=== PATIENT | female | born 1990 | race Caucasian/White ===

== ENCOUNTER 2021-06-04 11:11 | Emergency (ER) | payer OTHER ==
[2021-06-04] MEDS ORDERED: Ketorolac 10 MG Tab PO ONE (12:00)
--- NOTE | 2021-06-04 12:02 | EDM.PDOC ---
ED HPI GENERAL MEDICAL PROBLEM - General Chief Complaint: Upper Extremity Injury/Pain Stated Complaint: Hand Crush Injury Time Seen by Provider: 06/04/21 11:15 Source of Information: Reports: Patient History Limitations: Reports: No Limitations - History of Present Illness INITIAL COMMENTS - FREE TEXT/NARRATIVE: Patient comes here from [facility] with injury to right hand. Got back of hand caught between two pieces of metal. Has pain on back of hand laterally, but no wrist or finger pain. No numbness/weakness/deformity. - Related Data Allergies Allergy/AdvReac Type Severity Reaction Status Date / Time amoxicillin Allergy Cannot Verified 06/04/21 12:01 Remember Home Meds: Home Meds Multivitamin 1 each PO 06/04/21 [History] Review of Systems - Review of Systems Review Of Systems: See Below Constitutional: Reports: No Symptoms Eyes: Reports: No Symptoms Ears: Reports: No Symptoms Nose: Reports: No Symptoms Mouth/Throat: Reports: No Symptoms Cardiovascular: Reports: No Symptoms GI/Abdominal: Reports: No Symptoms Genitourinary: Reports: No Symptoms Musculoskeletal: Reports: Hand Pain, Other (right hand pain). Denies: Joint Pain, Joint Swelling Skin: Reports: Bruising. Denies: Mottled, Pallor, Erythema, Wound, Lumps Neurological: Reports: No Symptoms Psychiatric: Reports: No Symptoms ED EXAM, GENERAL - Physical Exam Exam: See Below Exam Limited By: No Limitations General Appearance: Alert, WD/WN, No Apparent Distress Eye Exam: Bilateral Eye: EOMI, PERRL Ears: Hearing Grossly Normal Throat/Mouth: Normal Voice Head: Atraumatic, Normocephalic Peripheral Pulses: 2+: Radial (R) Extremities: Other (Pain with palpation over right 4th and 5th metacarpal area. Small amount bruising over dorsal apect of hand. Fingers/wrist nontender and full ROM. ). No: Joint Swelling, Increased Warmth, Mottled, Pallor, Redness Neurological: Alert, Oriented, Normal Cognition, No Motor/Sensory Deficits Psychiatric: Normal Affect, Normal Mood Skin Exam: Warm, Dry, Intact Course - Orders/Labs/Meds Orders: Active Orders 24 hr Category Date Time Status Hand Comp Min 3V Rt [CR] Stat Exams 06/04/21 11:12 Ordered Meds: Medications Discontinued Medications Generic Name Dose Route Start Last Admin Trade Name Freq PRN Reason Stop Dose Admin Ketorolac Tromethamine 10 mg 06/04/21 12:00 Ketorolac 10 Mg Tab PO 06/04/21 12:01 ONETIME ONE - Re-Assessments/Exams Free Text/Narrative Re-Assessment/Exam: 06/04/21 12:13 Xray showed no evidence of acute fracture. Hand splinted with pre-roly splint for comfort/protection. Toradol PO for pain. Work note given to patient. No work until 06/07. Follow up as needed. Departure - Departure Time of Disposition: 12:00 Disposition: Home, Self-Care 01 Condition: Good Clinical Impression: Crushing injury of right hand Qualifiers: Encounter type: initial encounter Qualified Code(s): S67.21XA - Crushing injury of right hand, initial encounter - Discharge Information *PRESCRIPTION DRUG MONITORING PROGRAM REVIEWED*: Not Applicable *COPY OF PRESCRIPTION DRUG MONITORING REPORT IN PATIENT [place]: Not Applicable Instructions: Crush Injury of the Hand, [id number] Referrals: Patricia King [employer]PER[employer] [Primary Care Provider] - Forms: ED Department Discharge Additional Instructions: Wear splint for comfort/protection. Ice and elevate hand when at home. Take Ibuprofen or Aleve or Tylenol to help with any pain. Follow up as needed for further restrictions with your primary clinic if you don't have significant imp rovement over the weekend. - My Orders Last 24 Hours: My Active Orders 06/04/21 11:12 Hand Comp Min 3V Rt [CR] Stat - Assessment/Plan Last 24 Hours: My Active Orders 06/04/21 11:12 Hand Comp Min 3V Rt [CR] Stat
== END 2021-06-04 12:07 | disposition home or self-care (01) ==
LOC: LL.ED 11:11
DX: S67.21XA Crushing injury of right hand, initial encounter (principal); Z88.0 Allergy status to penicillin; W23.0XXA Caught, crushed, jammed, or pinched between moving objects, initial encounter
CPT/HCPCS: 73130-RT; 99283; 99283-25